=== PATIENT | male | born 1970 | race American Indian/Alaskan Native ===

== ENCOUNTER 2020-12-02 22:22 | Emergency (ER) | payer SELFPAY ==
[2020-12-03 00:15] LABS: Basophils % (Auto) 0.4 % (0.0-1.8); Eosinophils # (Auto) 0.2 K/mm3 (0.0-0.4); Eosinophils % (Auto) 2.3 % (0.0-4.3); Hematocrit 35.7 % (35.5-45.6); Lymphocytes # (Auto) 1.9 K/mm3 (1.2-5.4); Lymphocytes % (Auto) 20.1 % (13.4-35.0); Mean Corpuscular HGB Conc 34 % (32-34); Mean Corpuscular Volume 89 fl (84-94); Monocytes # (Auto) 0.8 K/mm3 (0.0-0.8); Monocytes % (Auto) 8.6 % (0.0-7.3); Platelet Count 349 K/mm3 (140-440); Red Blood Count 4.02 M/mm3 (3.65-5.03); Red Cell Distribution Width 13.9 % (13.2-15.2)
--- NOTE | 2020-12-03 00:19 | Emergency Department Report ---
ED Abdominal Pain HPI - General Chief Complaint: Abdominal Pain Stated Complaint: LOWER ABD PAIN/URINARY RETENTION Time Seen by Provider: 12/03/20 00:15 Source: patient Mode of arrival: Ambulatory Limitations: No Limitations - History of Present Illness Initial Comments: 50-year-old male with history of bladder dysfunction (he is unsure of his exact diagnosis), chronic kidney disease, presents to ED with abdominal pain. Patient states pain is located in the suprapubic area. Has been ongoing for the last 2 to 3 weeks. Patient reports he self caths but also urinates without having to cath. He reports dysuria and states that his urine is quite yellow but denies any odor. Patient states he was unable to get into his urologist office so he decided to come to the ER. Patient cannot remember the name of his urologist. Patient states he also sees a prepress stripper as well. MD Complaint: abdominal pain -: week(s) (3) Location: suprapubic Radiation: none Migration to: no migration Severity: moderate Quality: sharp Consistency: intermittent Improves With: nothing Worsens With: other (Urination) Associated Symptoms: dysuria. denies: nausea, vomiting, fever - Related Data Previous Rx's Medication Instructions Recorded Last Taken Type Ciprofloxacin HCl [Ciprofloxacin 250 mg PO BID 3 Days #6 tablet 12/03/20 Unknown Rx TAB] Allergies Allergy/AdvReac Type Severity Reaction Status Date / Time Sulfa (Sulfonamide Allergy Unknown Verified 01/04/20 13:37 Antibiotics) ED Review of Systems ROS: Stated complaint: LOWER ABD PAIN/URINARY RETENTION Other details as noted in HPI Comment: All other systems reviewed and negative Constitutional: denies: fever Gastrointestinal: abdominal pain. denies: nausea, vomiting Genitourinary: dysuria Musculoskeletal: denies: back pain ED Past Medical Hx - Past Medical History Previous Medical History?: Yes Hx Hypertension: Yes Hx Diabetes: Yes Hx Renal Disease: Yes ("one finctioning kidney" right kidney not working.) - Surgical History Past Surgical History?: No - Social History Smoking Status: Never Smoker Substance Use Type: None - Medications Home Medications: Home Medications Medication Instructions Recorded Confirmed Last Taken Type Ciprofloxacin HCl [Ciprofloxacin 250 mg PO BID 3 Days #6 tablet 12/03/20 Unknown Rx TAB] ED Physical Exam - General Limitations: No Limitations General appearance: alert, in no apparent distress - Head Head exam: Present: atraumatic, normocephalic - Eye Eye exam: Present: normal appearance, EOMI - ENT ENT exam: Present: mucous membranes moist - Neck Neck exam: Present: normal inspection - Respiratory Respiratory exam: Present: normal lung sounds bilaterally. Absent: respiratory distress - Cardiovascular Cardiovascular Exam: Present: regular rate, normal rhythm - GI/Abdominal GI/Abdominal exam: Present: soft, tenderness (Suprapubic). Absent: distended - Extremities Exam Extremities exam: Present: normal inspection - Back Exam Back exam: Absent: CVA tenderness (R), CVA tenderness (L) - Neurological Exam Neurological exam: Present: alert, oriented X3 - Psychiatric Psychiatric exam: Present: normal affect, normal mood - Skin Skin exam: Present: warm, dry, intact, normal color ED Course Vital Signs 12/02/20 12/03/20 12/03/20 23:21 00:24 02:32 Temperature 99.8 F H 98.5 F 98.6 F Pulse Rate 82 77 73 Respiratory 16 16 16 Rate Blood Pressure 158/90 Blood Pressure 180/88 176/81 [Right] O2 Sat by Pulse 93 94 95 Oximetry ED Medical Decision Making - Lab Data Result diagrams: 12/02/20 23:51 12/02/20 23:51 - Medical Decision Making UA shows UTI. Will give prescription for antibiotics. Patient reports history of chronic kidney disease we do not have prior labs for comparison. Advised patient to follow-up with his prepress stripper and urologist. - Differential Diagnosis UTI Critical care attestation.: If time is entered above; I have spent that time in minutes in the direct care of this critically ill patient, excluding procedure time. ED Disposition Clinical Impression: UTI (urinary tract infection), Renal insufficiency Disposition: - TO HOME OR SELFCARE Is pt being admited?: No Condition: Stable Instructions: Urinary Tract Infection, Adult Prescriptions: Ciprofloxacin HCl [Ciprofloxacin TAB] 250 mg PO BID 3 Days #6 tablet Referrals: PRIMARY CARE, [Primary Care Provider] - 3-5 Days Time of Disposition: 02:11
[2020-12-03 00:32] LABS: Albumin 4.2 g/dL (3.9-5); Calcium 9.7 mg/dL (8.4-10.2)
[2020-12-03 01:29] LABS: Bilirubin,Urine NEG (Negative); Blood,Urine SM (Negative); Color,Urine Yellow (Yellow); Mucus,Urine FEW /HPF; Urobilinogen,Urine < 2.0 mg/dL (<2.0)
[2020-12-03 01:30] LABS: Protein,Urine >500 mg/dL (Negative); WBC,Urine > 182.0 /HPF (0.0-6.0)
[2020-12-03 02:34] VITALS: BP 176/81
== END 2020-12-03 02:32 | disposition home or self-care (01) ==
LOC: ED 22:22
DX: N39.0 Urinary tract infection, site not specified (principal); N28.9 Disorder of kidney and ureter, unspecified; I10 Essential (primary) hypertension; E11.9 Type 2 diabetes mellitus without complications; Z79.899 Other long term (current) drug therapy; Z88.2 Allergy status to sulfonamides
CPT/HCPCS: 36415; 80053; 81001; 83690; 85025; 99283

== ENCOUNTER 2020-12-19 20:48 | Emergency (ER) | payer BC ==
--- NOTE | 2020-12-19 21:34 | Emergency Department Report ---
ED Rash HPI - HPI Stated Complaint: BREAKING OUT IN HIVES Duration: 3 weeks Location: Upper Extremities, Lower Extremities Rash Symptoms: Yes Itching, No Facial Swelling, No Tongue/Oral Swelling, No Breathing Difficulties, No Choking Sensation, No Wheezing/Dyspnea, No Peeling, No Blistering, No Fever, No Lightheaded, No Malaise, No Myalgias Severity: mild Other History: 50-year-old -[place] male presents to the emergency room stating he has had a rash for about 3 weeks that itches on his leg and upper arms. Patient states he has tried taking Benadryl. Patient denies any change of soap powder cologne lotion or toiletries. Patient does admit he has a pet at home. Patient reports no other person has this rash at home. Patient denies any shortness of breath chest pain difficulty swallowing swelling of his eyes. ED Review of Systems ROS: Stated complaint: BREAKING OUT IN HIVES Other details as noted in HPI ED Past Medical Hx - Past Medical History Hx Hypertension: Yes Hx Diabetes: Yes Hx Renal Disease: Yes ("one finctioning kidney" right kidney not working.) - Social History Smoking Status: Never Smoker Substance Use Type: None - Medications Home Medications: Home Medications Medication Instructions Recorded Confirmed Last Taken Type Ciprofloxacin HCl [Ciprofloxacin 250 mg PO BID 3 Days #6 tablet 12/03/20 Unknown Rx TAB] Triamcinolone Acetonide 15 gm TP BID #15 cream..g. 12/19/20 Unknown Rx Rash Exam - Exam General: Vital signs noted. No distress. Alert and acting appropriately. HEENT: No Periorbital Edema, No Conjuctival Injection, No Chemosis, No Perioral Edema, No Tongue Edema, No Uvular Edema, No Compromised Airway, No Drooling Lungs: Yes Good Air Exchange (Normal Breath Sounds), No Wheezes, No Ronchi, No Stridor, No Cough, No Labored Respirations, No Retractions, No Use of Accessory Muscles, No Other Abnormal Lung Sounds Skin: Yes Maculopapular Rash, Yes Erythema Other: Positive: Abdomen Normal, Neurologic Normal, Musculoskeletal Normal ED Medical Decision Making - Medical Decision Making 50-year-old -[place] male presents to the emergency room stating he has had a rash for about 3 weeks that itches on his leg and upper arms. Patient states he has tried taking Benadryl. Patient denies any change of soap powder cologne lotion or toiletries. Patient does admit he has a pet at home. Patient reports no other person has this rash at home. Patient denies any shortness of breath chest pain difficulty swallowing swelling of his eyes. We will try triamcinolone cream to rash. Follow-up with your primary care provider and technician telecommunication systems. Critical care attestation.: If time is entered above; I have spent that time in minutes in the direct care of this critically ill patient, excluding procedure time. ED Disposition Clinical Impression: Rash and nonspecific skin eruption Disposition: TO HOME OR SELFCARE Is pt being admited?: No Does the pt Need Aspirin: No Condition: Stable Instructions: Rash, Adult, [id number] Additional Instructions: Try using triamcinolone cream. Follow-up with your primary care provider. I have listed several primary care providers in this area that will make it a little bit more convenient for you to follow-up. You can also follow-up with an technician telecommunication systems. Prescriptions: Triamcinolone Acetonide 15 gm TP BID #15 cream..g. Referrals: ZOYA BORJA MD [Staff Physician] - 3-5 Days COLLEEN SCHRADER MD [Staff Physician] - 3-5 Days ADRIAN WARNER MD [Staff Physician] - 3-5 Days [facility] [Provider Group] - 3-5 Days
[2020-12-19 22:04] VITALS: BP 179/89
== END 2020-12-19 22:18 | disposition home or self-care (01) ==
LOC: ED 20:48
DX: R21 Rash and other nonspecific skin eruption (principal); I10 Essential (primary) hypertension; E11.9 Type 2 diabetes mellitus without complications; Z79.2 Long term (current) use of antibiotics; Z79.899 Other long term (current) drug therapy; Z88.2 Allergy status to sulfonamides
CPT/HCPCS: 99282